=== PATIENT | female | born 1940 | race Hispanic/Latino ===

== ENCOUNTER 2020-05-31 06:42 | Day surgery (SDC) | payer MEDICARE, OTHER ==
[2020-05-31] MEDS ORDERED: SODIUM CHLORIDE IRRI 1000 ML 1,000 ML, .VANCOMYCIN VIAL 1,000 MG IR NR (08:46)
[2020-05-31] MEDS ORDERED: SODIUM CHLORIDE 0.45% 1000 ML 1,000 ML IV SCH (09:00)
[2020-05-31 09:38] LABS: Basophils # (Auto) 0.1 K/mm3 (0.0-0.1); Eosinophils # (Auto) 0.4 K/mm3 (0.0-0.4); Eosinophils % (Auto) 5.8 % (0.0-4.3); Hemoglobin 12.3 gm/dl (10.1-14.3); Lymphocytes # (Auto) 1.6 K/mm3 (1.2-5.4); Lymphocytes % (Auto) 24.3 % (13.4-35.0); Mean Corpuscular HGB Conc 34 % (30-34); Mean Corpuscular Volume 89 fl (79-97); Monocytes # (Auto) 0.5 K/mm3 (0.0-0.8); Monocytes % (Auto) 8.3 % (0.0-7.3); Red Blood Count 4.04 M/mm3 (3.65-5.03); Red Cell Distribution Width 13.6 % (13.2-15.2)
[2020-05-31 09:40] LABS: Platelet Count 219 K/mm3 (140-440)
[2020-05-31 09:48] LABS: INR 1.03 (0.87-1.13)
[2020-05-31 09:51] LABS: BUN/Creatinine Ratio 31; Blood Urea Nitrogen 25 mg/dL (7-17); Hemolysis Index 6
[2020-05-31] MEDS ORDERED: SODIUM CHLORIDE IRRI 500 ML 500 ML IR ONE (11:08)
[2020-05-31] MEDS ORDERED: LIDOCAINE (1%) 10 MG/1 ML VIAL 20 ML MDV ONE (11:08)
[2020-05-31] MEDS ORDERED: BUPIVACAINE/PF (0.5%) 5 MG/1 ML 30 ML VIAL INFILTRATI ONE (11:09)
[2020-05-31] MEDS ORDERED: ceFAZolin/Water 2 GM/20 ML 2 GM/20 ML SYRINGE IV ONE (11:09)
[2020-05-31] MEDS: MIDAZOLAM 2 MG/2 ML INJ ONE ×2 (11:44→11:55)
[2020-05-31] MEDS ORDERED: diphenhydrAMINE 50 MG/ML VIAL ONE (11:44)
[2020-05-31] MEDS: fentaNYL 100 MCG/2 ML INJ ONE ×3 (11:44→11:55)
[2020-05-31] MEDS ORDERED: .VANCOMYCIN VIAL 1,000 MG in SODIUM CHLORIDE IRRI 1000 ML 1,000 ML IRRIGATION ONE (11:58)
[2020-05-31 14:19] VITALS: BP 106/37
--- NOTE | 2020-06-09 15:24 | History and Physical Report ---
History of Present Illness Date of examination: 05/31/20 Date of admission: 05/31/2020 Chief complaint: no complaints History of present illness: The pt is an 79 YO female with a past medical history of CMP, AICD in situ, HFrEF, HTN, HLP. She is followed in our office by Dr. Beckwith. She presented on 05/31/2020 for scheduled elective Bi-V AICD replacement. Pt subsequently successfully underwent the procedure and was discharged home in stable condition. Past History Past Medical History: other (as per HPI) Medications and Allergies Allergies Allergy/AdvReac Type Severity Reaction Status Date / Time nitrofurantoin Allergy Rash Verified 05/31/20 08:45 Home Medications Medication Instructions Recorded Confirmed Last Taken Type Adult One Daily Multivit Tab 1 tab PO DAILY 05/31/20 05/31/20 05/30/20 History 1 Anastrozole 1 tab PO DAILY 05/31/20 05/31/20 05/30/20 History 1 mg Aspirin [Adult Aspirin] 81 mg PO DAILY 05/31/20 05/31/20 05/30/20 History 81 mg Meclizine [Antivert] 25 mg PO DAILY 05/31/20 05/31/20 05/30/20 History 25 mg Quinapril(Nf) [Accupril (Nf)] 60 mg PO QDAY 05/31/20 05/31/20 05/30/20 History 60 mg Simvastatin 20 mg PO QHS 05/31/20 05/31/20 05/30/20 History 20 mg Spironolactone [Aldactone] 25 mg PO DAILY 05/31/20 05/31/20 05/30/20 History 25 mg carvediloL [Coreg] 50 mg PO BID 05/31/20 05/31/20 05/30/20 History 50 mg cephALEXin [Keflex] 500 mg PO Q12HR 7 Days #14 cap 05/31/20 Unknown Rx Review of Systems All systems: negative (no complaints) Physical Examination Vital Signs Temp Pulse Resp BP Pulse Ox 98.4 F 64 16 123/56 98 05/31/20 09:20 05/31/20 09:20 05/31/20 09:20 05/31/20 09:20 05/31/20 09:20 General appearance: no acute distress HEENT: Positive: PERRL, Sinus Tenderness, Mucus Membranes Moist Neck: Positive: neck supple, trachea midline Cardiac: Positive: Reg Rate and Rhythm, S1/S2 Lungs: Positive: clear to auscultation Neuro: Positive: Grossly Intact Abdomen: Negative: Tender Musculoskeletal: No Pain Extremities: Absent: edema Results 05/31/20 09:00 05/31/20 09:30 Assessment and Plan Pt subsequently successfully underwent AICD exchange and was discharged home in stable condition. Pt seen in conjunction with Dr. Dietrich who agrees with the assessment and plan of care. - Patient Problems (1) Automatic implantable cardioverter-defibrillator in situ Status: Chronic (2) Cardiomyopathy Status: Chronic (3) HTN (hypertension) Status: Chronic (4) Hyperlipidemia Status: Chronic
== END 2020-05-31 14:50 | disposition home or self-care (01) ==
LOC: CATHLABREC 06:42
PROVIDERS: ATTEND Internal Medicine Cardiovascular Disease
DX: Z45.02 Encounter for adjustment and management of automatic implantable cardiac defibrillator (principal); I42.8 Other cardiomyopathies; I11.0 Hypertensive heart disease with heart failure; I50.9 Heart failure, unspecified; E78.5 Hyperlipidemia, unspecified; E03.9 Hypothyroidism, unspecified; Z79.899 Other long term (current) drug therapy; Z79.82 Long term (current) use of aspirin; Z88.8 Allergy status to other drugs, medicaments and biological substances; Z95.810 Presence of automatic (implantable) cardiac defibrillator; Z98.49 Cataract extraction status, unspecified eye; Z87.440 Personal history of urinary (tract) infections; Z98.890 Other specified postprocedural states; Z86.2 Personal history of diseases of the blood and blood-forming organs and certain disorders involving the immune mechanism
CPT/HCPCS: 33264; 36415; 80048; 85025; 85610; 85730; 99156; 99157; C1882; J0690; J1200; J2250; J3010; J3370; J7030